=== PATIENT | male | born 1945 | race Caucasian/White ===

== ENCOUNTER → 2017-03-14 | Outpatient (CLI) | payer OTHER ==
[~2017-03-14] MED LIST: ASPIRIN81 M2 PO; CENTRUM SILVER1 EAC3 PO; FLAXSEED-FISH-400 MG PO; FUROSEMIDE40 MG PO; KEFLEX500 MG PO; LIPITOR80 MG PO; LOFIBRA,TRIGLI160 MG PO; NORCO 5/3251 TABLET PO; PRINIVIL10 MG PO; TOPROL XL50 MG PO; VITAMIN E400 UNIT PO
== END | disposition home or self-care (01) ==
LOC: RES 03-05 08:00
DX: J98.4 Other disorders of lung (principal)
CPT/HCPCS: 94060; 94726; 94729